=== PATIENT | male | born 1950 | race Caucasian/White ===

== ENCOUNTER → 2017-03-17 | Outpatient (CLI) | payer MEDICARE, OTHER | END | disposition disaster alternative care site (69) | LOC: GAIR 16:32 | DX: I95.9 Hypotension, unspecified (principal); E11.9 Type 2 diabetes mellitus without complications; A41.9 Sepsis, unspecified organism; D72.829 Elevated white blood cell count, unspecified; Z85.528 Personal history of other malignant neoplasm of kidney; Z90.49 Acquired absence of other specified parts of digestive tract; Z95.810 Presence of automatic (implantable) cardiac defibrillator; Z79.82 Long term (current) use of aspirin; Z79.2 Long term (current) use of antibiotics; Z79.1 Long term (current) use of non-steroidal anti-inflammatories (NSAID); Z79.899 Other long term (current) drug therapy | CPT/HCPCS: A0422; A0431; A0436; J2405; J7050 ==